=== PATIENT | male | born 1945 | race Caucasian/White ===

== ENCOUNTER 2022-10-19 08:11 | Observation (INO) ==
[2022-10-19 09:58] LABS: ABS Lymphocytes 0.3 10^3/ul (1.0-4.8); ABS Monocytes 0.8 10^3/ul (0-0.8); ABS Neutrophils 9.8 10^3/ul (1.5-7.7); Eosinophil % 0.4 %; Hematocrit 43 % (42-52); Hemoglobin 14.2 g/dL (14.0-18.0); Lymphocyte % 2.6 %; Mean Corpuscular HGB Conc 33 g/dL (31-36); Mean Corpuscular Hemoglobin 29 pg (27-31); Mean Corpuscular Volume 88 fL (80-94); Mean Platelet Volume 8.1 fL (7.4-10.4); Platelet Count 244 10^3/uL (150-450); Red Cell Distribution Width 15 % (10-15)
[2022-10-19 10:10] LABS: INR 1.49 (0.88-1.18)
[2022-10-19 10:40] LABS: Albumin 3.9 g/dL (3.2-5.2); Albumin/Globulin Ratio 1.6 (1-3); Calcium 8.7 mg/dL (8.6-10.3); Globulin 2.5 g/dL (2-4); Magnesium 1.7 mg/dL (1.9-2.7); Potassium 4.3 mmol/L (3.5-5.0); Total Bilirubin 0.5 mg/dL (0.2-1.0); Total Protein 6.4 g/dL (6.4-8.9); eGFR CKD-EPI 52.5 (>60)
[2022-10-19 10:44] LABS: TSH Ultra Thyroid Stim Horm 3.78 mcIU/mL (0.34-5.60)
[2022-10-19] MEDS ORDERED: Lactated Ringers 1000 ml BAG 1,000 ML IV ONE ×2 (10:48→11:00)
[2022-10-19] MEDS ORDERED: NS 0.9% 500 ml BAG 500 ML IV ONE (10:59)
[2022-10-19 11:25] LABS: High Sensitivity Troponin 1 Hr 6 pg/mL (<20)
[2022-10-19] MEDS ORDERED: Magnesium Sulfate 2 gm BAG 2 GM/50 ML BAG IVPB ONE (12:11)
[2022-10-19 12:29] LABS: Urine Appearance Clear; Urine Bilirubin Negative (Negative); Urine Blood Negative (Negative); Urine Color Yellow; Urine Glucose Negative (Negative); Urine Ketones Negative (Negative); Urine Nitrite Negative (Negative); Urine Protein Negative (Negative); Urine Specific Gravity 1.024 (1.002-1.030); Urine Urobilinogen Negative (Negative)
[2022-10-20 08:24] VITALS: BP 103/61
[2022-10-20] MEDS ORDERED: Senna TAB 8.6 mg TAB PO PRN (12:08)
== END 2022-10-20 15:00 | disposition home or self-care (01) ==
LOC: ED 08:11 → EDHOLD 08:11 → SUATTDRO 12:09 → MEDTELE 13:12
PROVIDERS: ADMIT Hospitalist; ATTEND Internal Medicine